=== PATIENT | male | born 1950 | race Caucasian/White ===

== ENCOUNTER 2017-02-08 14:24 | Observation (INO) | payer MEDICARE, BC ==
[~2017-02-08] VITALS: Ht 175.3 cm; Wt 85.8 kg
[2017-02-08 14:51] LABS: HEMOGLOBIN 14.3 gm/dl (14.0-17.5); RED BLOOD COUNT 4.98 M/UL (4.20-5.50)
[2017-02-09] MEDS ORDERED: FELODIPINE ER10 MG PO (03:21)
[2017-02-09] MEDS ORDERED: FLOMAX0.4 MG PO (03:22)
[2017-02-09] MEDS ORDERED: MONTELUKAST SOD10 MG PO (03:22)
[2017-02-09] MEDS ORDERED: METFORMIN HCL500 MG PO (03:22)
[2017-02-09] MEDS ORDERED: FENOFIBRATE160 MG PO (03:23)
[2017-02-09] MEDS ORDERED: CETIRIZINE HCL10 MG PO (03:23)
[2017-02-09] MEDS ORDERED: ZOLOFT100 MG PO (03:24)
[2017-02-09] MEDS ORDERED: LOSARTAN POTASS25 MG PO (03:24)
[2017-02-09] MEDS ORDERED: NEURONTIN 100100 MG PO (03:25)
[2017-02-09] MEDS ORDERED: SIMVASTATIN40 MG PO (03:25)
[2017-02-09] MEDS ORDERED: MOBIC7.5 MG PO (03:26)
[2017-02-09 04:23] LABS: HEMOGLOBIN 13.3 gm/dl (14.0-17.5); RED BLOOD COUNT 4.66 M/UL (4.20-5.50); WHITE BLOOD COUNT 8.3 K/UL (4.5-11.0)
[2017-02-09] MEDS ORDERED: ASPIRIN81 MG PO (16:08)
== END 2017-02-09 17:03 | disposition home or self-care (01) ==
LOC: ER1 14:24 → ZEROF 18:05 → M/S 21:00
PROVIDERS: Physician Assistant; ADMIT Family Medicine
DX: R07.89 Other chest pain (principal); E11.9 Type 2 diabetes mellitus without complications; I10 Essential (primary) hypertension; E78.5 Hyperlipidemia, unspecified; N40.0 Benign prostatic hyperplasia without lower urinary tract symptoms; I45.10 Unspecified right bundle-branch block; M51.34 Other intervertebral disc degeneration, thoracic region; R06.00 Dyspnea, unspecified; F32.9 Major depressive disorder, single episode, unspecified; Z79.82 Long term (current) use of aspirin; Z79.899 Other long term (current) drug therapy; Z82.49 Family history of ischemic heart disease and other diseases of the circulatory system
CPT/HCPCS: ECHO; 36415; 71010; 72070; 78452; 80053; 80061; 82550; 82553; 82962; 83036; 83874; 83880; 84484; 85025; 93005; 93017; 93306; 99285; A9502; G0378; J2785; Q0162

== ENCOUNTER → 2017-03-29 | Outpatient (CLI) | payer MEDICARE, BC ==
[~2017-03-29] MED LIST: ASPIRIN81 MG PO; CETIRIZINE HCL10 MG PO; FELODIPINE ER10 MG PO; FENOFIBRATE160 MG PO; FLOMAX0.4 MG PO; LOSARTAN POTASS25 MG PO; METFORMIN HCL500 MG PO; MOBIC7.5 MG PO; MONTELUKAST SOD10 MG PO; NEURONTIN 100100 MG PO; SIMVASTATIN40 MG PO; ZOLOFT100 MG PO
== END ==
LOC: HEART 5 15:05
DX: R06.00 Dyspnea, unspecified (principal)
CPT/HCPCS: 94010

== ENCOUNTER 2021-04-08 14:58 | Observation (INO) | payer MEDICARE, BC ==
[~2021-04-08] VITALS: Ht 177.8 cm; Wt 81.6 kg
[~2021-04-08 14:58] MED LIST changes: +ARICEPT5 MG PO; +ASPIRIN CHEWABL81 MG PO; +ATENOLOL25 MG PO; +BRILINTA 90 MG90 MG PO; +CRESTOR 10 MG T10 MG PO; +CRESTOR10 MG PO; +EFFIENT10 MG PO; +FLOMAX 0.4 MG0.4 MG PO; +FLUZONE QU60 MCG/018 IM; +GLUCOPHAGE1000 MG PO; +GLUCOTROL 10 MG10 MG PO; +IMDUR ER TAB 3030 MG PO; +NITROGLYCERIN0.4 MG SL; +QVAR REDIHALE10.6 G1 INH; +TESSALON PERLE100 MG PO; +VENTOLIN HFA 66.7 GM INH
[2021-04-08 16:57] LABS: HEMOGLOBIN 14.5 gm/dl (14.0-17.5); RED BLOOD COUNT 5.01 M/UL (4.20-5.50); WHITE BLOOD COUNT 6.6 K/UL (4.5-11.0)
--- NOTE | 2021-04-09 02:17 | NUR ---
REPORT CALLED TO SUSAN CADENA
== END 2021-04-09 16:41 | disposition home or self-care (01) ==
LOC: ER1 14:58 → MED SURG 4 17:58 → CDU 17:58 → MED SURG 4 19:49 → M/S 04-09 01:04
PROVIDERS: Preventive Medicine Occupational Medicine; ADMIT Internal Medicine Infectious Disease
DX: R20.0 Anesthesia of skin (principal); I12.9 Hypertensive chronic kidney disease with stage 1 through stage 4 chronic kidney disease, or unspecified chronic kidney disease; E11.22 Type 2 diabetes mellitus with diabetic chronic kidney disease; N18.30 Chronic kidney disease, stage 3 unspecified; I25.10 Atherosclerotic heart disease of native coronary artery without angina pectoris; E78.5 Hyperlipidemia, unspecified; Z85.46 Personal history of malignant neoplasm of prostate; Z79.82 Long term (current) use of aspirin; Z79.84 Long term (current) use of oral hypoglycemic drugs; Z79.899 Other long term (current) drug therapy; Z20.822 Contact with and (suspected) exposure to COVID-19
CPT/HCPCS: ECHO; 36415; 70450; 70544; 70551; 71045; 80048; 80053; 81001; 82962; 83036; 83690; 83735; 84443; 85025; 85652; 86140; 87086; 93306; 93880; 99285; G0378; J7030; U0002